=== PATIENT | female | born 1955 | race Caucasian/White ===

== ENCOUNTER → 2019-05-28 | Outpatient (CLI) | payer SELFPAY ==
--- NOTE | 2019-05-28 15:26 | RADIOLOGY REPORT (SQ) ---
EXAM DESCRIPTION: FOOT LEFT COMPLETE COMPLETED DATE/TIME: 05/28/2019 12:27 pm REASON FOR STUDY: LEFT FOOT PAIN, REDNESS AND SWELLING COMPARISON: None. NUMBER OF VIEWS: Three views. TECHNIQUE: AP, lateral and oblique radiographic images acquired of the left foot. LIMITATIONS: None. FINDINGS: MINERALIZATION: Normal. BONES: No acute fracture or dislocation. No worrisome bone lesions. JOINTS: No effusions. SOFT TISSUES: No soft tissue swelling. No foreign body. OTHER: No other significant finding. IMPRESSION: NEGATIVE STUDY OF THE LEFT FOOT. NO RADIOGRAPHIC EVIDENCE OF ACUTE INJURY. TECHNICAL DOCUMENTATION: JOB ID: [id number] [employer]- All Rights Reserved Reading location - IP/workstation name: [email or web address]
== END ==
LOC: RAD 11:51
PROVIDERS: ATTEND Nurse Practitioner Family
DX: M79.672 Pain in left foot (principal)

== ENCOUNTER → 2019-07-16 | Outpatient (CLI) | payer OTHER ==
--- NOTE | 2019-07-16 13:03 | WOMENS IMAGING REPORT ---
EXAM DESCRIPTION: RETROPERITONEAL U/S COMPLETED DATE/TIME: 07/16/2019 12:07 pm REASON FOR STUDY: N39.0 URINARY TRACT INFECTION, SITE NOT SPECIFIED N39.0 URINARY TRACT INFECTION, SITE NOT SPECIFIED COMPARISON: None. TECHNIQUE: Dynamic and static grayscale images acquired of the kidneys and bladder and recorded on P ACS. Additional selected color Doppler and spectral images recorded. LIMITATIONS: None. FINDINGS: RIGHT KIDNEY: Right kidney 11.2 cm in length Normal echogenicity. No solid or suspici ous masses. No hydronephrosis. No calcifications. LEFT KIDNEY: Left kidney 10.5 cm in length. Normal echogenicity. No solid or suspicious masses. No hydronephrosis. No calcifications. BLADDER: No masses. OTHER FINDINGS: Echogenic liver, shadowing stones in the gallbladder IMPRESSION: NORMAL RENAL AND BLADDER ULTRASOUND. TECHNICAL DOCUMENTATION: JOB ID: [id number]- All Rights Reserved Reading location - IP/workstation name: [email or web address]
== END ==
LOC: WI 11:30
PROVIDERS: ATTEND Urology
DX: N39.0 Urinary tract infection, site not specified (principal)
CPT/HCPCS: 76770

== ENCOUNTER → 2019-09-03 | Outpatient (CLI) | payer OTHER ==
--- NOTE | 2019-09-03 15:08 | WOMENS IMAGING REPORT ---
EXAM DESCRIPTION: TRANSVAGINAL ULTRASOUND COMPLETED DATE/TIME: 09/03/2019 2:27 pm REASON FOR STUDY: N93.9 ABNORMAL UTERINE AND VAGINAL BLEEDING, UNSPECIFIED N93.9 ABNORMAL UTERINE A ND VAGINAL BLEEDING, UNSPECIFIED COMPARISON: None. TECHNIQUE: Dynamic and static grayscale images acquired of the pelvis via transvaginal approach and recorded on PACS. Additional selected color Doppler and spectral images recorded. LIMITATIONS: None. FINDINGS: Prior hysterectomy and BSO. No pelvic mass or fluid collection. IMPRESSION: No pelvic mass or fluid collection. TECHNICAL DOCUMENTATION: JOB ID: [id number]- All Rights Reserved Rev-03/03 Reading location - IP/workstation name: [email or web address]
== END ==
LOC: RAD 14:05
PROVIDERS: ATTEND Nurse Practitioner Primary Care
DX: N93.9 Abnormal uterine and vaginal bleeding, unspecified (principal)
CPT/HCPCS: 76830

== ENCOUNTER 2019-10-08 16:56 | Observation (INO) | payer OTHER ==
--- NOTE | 2019-10-08 17:53 | ER Document Report ---
ED Medical Screen (RME) - General Chief Complaint: Vaginal Bleeding Stated Complaint: ABDOMINAL PAIN, VAGINAL BLEEDING Time Seen by Provider: 10/08/19 17:37 Primary Care Provider: ESHA PAIGE FNP-C [Primary Care Provider] - Follow up as needed Notes: 64-year-old female with history of subacute vaginal bleeding and hypertension presents to the emergency department for chief complaint of vaginal bleeding. Patient states that she has been fully worked up by an urologist and her no abnormalities seen. She was also seen at [facility] and had a transvaginal ultrasound on 09/03/2019 and had a normal ultrasound. Patient states that the bleeding has been present since May and ranges from spotting to very light "last day of my period" bleeding. Patient was instructed to go through the emergency department for further evaluation. Patient does have intermittent generalized abdominal pain. Exam: Well-appearing no acute distress, lungs are clear to auscultation all hernandez, abdominal exam deferred in triage I have greeted and performed a rapid initial assessment of this patient. A comprehensive ED assessment and evaluation of the patient, analysis of test results and completion of medical decision making process will be conducted by an additional ED providers. TRAVEL OUTSIDE OF THE [place] IN LAST 30 DAYS: No - Related Data Allergies/Adverse Reactions: No Known Allergies Allergy (Verified 10/08/19 17:37) Physical Exam - Vital signs Vitals: Temp Pulse Resp BP Pulse Ox 98.0 F 67 18 117/56 L 97 10/08/19 17:04 10/08/19 17:04 10/08/19 17:04 10/08/19 17:04 10/08/19 17:04 Course - Vital Signs Vital signs: Temp Pulse Resp BP Pulse Ox 98.0 F 67 18 117/56 L 97 10/08/19 17:04 10/08/19 17:04 10/08/19 17:04 10/08/19 17:04 10/08/19 17:04 Doctor's Discharge - Discharge Referrals: ESHA PAIGE FNP-C [Primary Care Provider] - Follow up as needed
[2019-10-08 18:24] LABS: APPEARANCE,URINE SLIGHTLY-CLOUDY; BILIRUBIN,URINE NEGATIVE (NEGATIVE); COLOR,URINE YELLOW; GLUCOSE, URINE NEGATIVE (NEGATIVE); KETONES,URINE NEGATIVE (NEGATIVE); LEUKOCYTE ESTERASE,URINE LARGE (NEGATIVE); NITRITE,URINE NEGATIVE (NEGATIVE); PROTEIN,URINE NEGATIVE (NEGATIVE); URINE SPECIFIC GRAVITY 1.017; UROBILINOGEN,URINE NEGATIVE mg/dL (<2.0)
[2019-10-08 19:45] LABS: ABSOLUTE BASOPHILS # (AUTO) 0.1 10^3/uL (0.0-0.2); ABSOLUTE EOSINOPHILS # (AUTO) 0.4 10^3/uL (0.0-0.6); ABSOLUTE LYMPHOCYTES (AUTO) 3.2 10^3/uL (0.5-4.7); ABSOLUTE NEUT (AUTO) 6.6 10^3/uL (1.7-8.2); BASOPHILS % (AUTO) 1.3 % (0-2); EOSINOPHILS % (AUTO) 3.9 % (0-6); HEMOGLOBIN 11.6 g/dL (12.0-15.5); LYMPHOCYTES % (AUTO) 28.2 % (13-45); MEAN CORPUSCULAR HEMOGLOBIN 29.5 pg (27.0-33.4); MEAN CORPUSCULAR HGB CONC 33.1 g/dL (32.0-36.0); MEAN CORPUSCULAR VOLUME 89 fl (80-97); MONOCYTES % (AUTO) 9.1 % (3-13); PLATELET COUNT 481 10^3/uL (150-450); RED BLOOD COUNT 3.93 10^6/uL (3.72-5.28); RED CELL DISTRIBUTION WIDTH 15.2 % (11.5-14.0); SEGMENTED NEUTROPHILS % (AUTO) 57.5 % (42-78); TOTAL CELLS COUNTED % (AUTO) 100 %; WHITE BLOOD COUNT 11.4 10^3/uL (4.0-10.5)
[2019-10-08 20:07] LABS: ALBUMIN 3.8 g/dL (3.5-5.0); ALKALINE PHOSPHATASE 133 U/L (38-126); ANION GAP 9 (5-19); ASPARTATE AMINO TRANSFERASE 35 U/L (14-36); BILIRUBIN,DIRECT 0.1 mg/dL (0.0-0.4); BILIRUBIN,TOTAL 0.3 mg/dL (0.2-1.3); BLOOD UREA NITROGEN 12 mg/dL (7-20); CALCIUM 9.2 mg/dL (8.4-10.2); CARBON DIOXIDE 28 mmol/L (22-30); CHLORIDE 100 mmol/L (98-107); GLUCOSE 107 mg/dL (75-110); POTASSIUM 4.5 mmol/L (3.6-5.0); TOTAL PROTEIN 6.6 g/dL (6.3-8.2)
--- NOTE | 2019-10-08 20:38 | ER Document Report ---
ED General - General Chief Complaint: Vaginal Bleeding Stated Complaint: ABDOMINAL PAIN, VAGINAL BLEEDING Time Seen by Provider: 10/08/19 17:37 Primary Care Provider: ESHA PAIGE FNP-C [NO LOCAL MD] - Follow up as needed Notes: 64-year-old female with history of complete hysterectomy presents for vaginal bl eeding that is been ongoing since May. Associated pelvic cramping similar to a menstrual cramp. Patient also states she has some dysuria and odor for 2 days. Patient states she was seen by urologist and had "a complete work-up" patient included a cystoscope and ultrasound of her kidneys/bladder which were all normal. Patient then was sent for a transvaginal ultrasound on September 04 which was also unremarkable. Patient was sent to ER for further work-up today. Patient is followed by her PCP at [facility]. Patient denies any abdominal pain, nausea/vomiting/diarrhea/constipation, chest pain, dyspnea. TRAVEL OUTSIDE OF THE [place] IN LAST 30 DAYS: No - Related Data Allergies/Adverse Reactions: No Known Allergies Allergy (Verified 10/08/19 17:37) Past Medical History - Social History Smoking Status: Former Smoker Family History: None Patient has suicidal ideation: No Patient has homicidal ideation: No Review of Systems - Review of Systems Notes: Constitutional: Negative for fever. HENT: Negative for sore throat. Eyes: Negative for visual changes. Cardiovascular: Negative for chest pain. Respiratory: Negative for shortness of breath. Gastrointestinal: Negative for abdominal pain, vomiting or diarrhea. Genitourinary: Positive for dysuria, urinary odor, vaginal bleeding.. Musculoskeletal: Negative for back pain. Skin: Negative for rash. Neurological: Negative for headaches, weakness or numbness. 10 point ROS negative except as marked above and in HPI. Physical Exam - Vital signs Vitals: Temp Pulse Resp BP Pulse Ox 98.0 F 67 18 117/56 L 97 10/08/19 17:04 10/08/19 17:04 10/08/19 17:04 10/08/19 17:04 10/08/19 17:04 - Notes Notes: GENERAL: Well-appearing, well-nourished and in no acute distress. HEAD: Atraumatic, normocephalic. EYES: Extraocular movements intact, sclera anicteric, conjunctiva are normal. NECK: Normal range of motion, supple without lymphadenopathy or JVD. LUNGS: Breath sounds clear to auscultation bilaterally and equal. No wheezes rales or rhonchi. HEART: Regular rate and rhythm without murmurs, rubs or gallops. ABDOMEN: Soft, nontender. No guarding, no rebound. No masses appreciated. PELVIC: No cervix seen. Vagina appears irritated with mild bleeding. Rectal: External hemrrhoids seen without inflammation. Hemoccult is negative. No gross blood seen on exam. EXTREMITIES: Normal range of motion, no pitting or edema. No clubbing or cyanosis. NEUROLOGICAL: Cranial nerves II through XII grossly intact. Normal speech, normal gait. PSYCH: Normal mood, normal affect. SKIN: Warm, Dry, normal turgor, no rashes or lesions noted. Course - Re-evaluation Re-evalutation: 10/08/19 Well-appearing, nontoxic female who presents for vaginal bleeding since May. Patient has been seen by urologist "had a normal work-up." Patient was also sent for transvaginal ultrasound by her PCP in August which was normal. Patient has a history of a complete hysterectomy. Patient also reports associated lower pelvic cramping similar to a menstrual cramp. Patient also reports 2-day history of dysuria and urinary odor. Patient's UA is positive for a UTI. 10/08/19 20:38 CBC shows mild anemia with hemoglobin of 11.6 and mild leukocytosis of 11.4. CMP is within normal limits except for mildly elevated alk phos at 133 and sodium of 136.7. 10/08/19 20:40 Review of previous records shows of retroperitoneal ultrasound which was done on 07/16/2019 which showed normal kidneys and bladder. Transvaginal ultrasound completed on 09/03/2019 shows prior hysterectomy and BSO with no pelvic mass or fluid collection. 10/08/19 21:44 CT abdomen/pelvis shows findings suggesting peridiverticular abscess however pt has no abdominal tenderness on exam, no significantly elevated leukocytosis (WBC 11.4), and is afebrile. Discussed CT and pt with attending, Dr. Brown, who recommended pelvic exam and fecal hemoccult and sending pt home with vaginal estrogen cream. 10/08/19 22:[address] Duvall, general surgeon, who states he will come down to see pt. 10/08/19 22:35 Pelvic exam completed - vaginal irritation with mild bleeding seen consistent with atrophic vaginitis. No cervix seen. Rectal exam shows external hemorrhoids without inflammation. Fecal hemoccult is negative. 10/08/19 23:[address] Duvall at bedside. Dr. Duvall reviewed CT and states that fluid collection is most likely by the bladder and most likely secondary to bladder sling. Dr. Duvall recommends patient be seen by her urologist again that patient take CD of CT scan and CT report with her. Ask RN for CD and will call to have a CD burned with CT scan. Dr. Duvall states most likely that there is not a fistula between the bowel and bladder due to no air being in the bladder. This was all discussed with the patient at bedside. Patient to be given estrogen cream for vaginal irritation and close follow-up with urologist and her PCP. Patient voices understanding and agrees with plan of care. Strict return precautions given. - Vital Signs Vital signs: Temp Pulse Resp BP Pulse Ox 98.2 F 75 15 144/74 H 99 10/08/19 22:06 10/08/19 22:06 10/08/19 22:06 10/08/19 22:06 10/08/19 22:06 - Laboratory Result Diagrams: 10/08/19 19:16 10/08/19 19:16 Laboratory results interpreted by me: 10/08/19 10/08/19 10/08/19 17:55 19:16 19:16 WBC 11.4 H Hgb 11.6 L Hct 35.0 L RDW 15.2 H Plt Count 481 H Sodium 136.7 L Alkaline Phosphatase 133 H Urine Blood MODERATE H Ur Leukocyte Esterase LARGE H Urine Ascorbic Acid 40 H Discharge - Discharge Clinical Impression: Acute UTI, Atrophic vaginitis, Abscess Condition: Stable Disposition: ADMITTED INPATIENT Admitting Provider: Dr. Duvall Unit Admitted: Surgical Floor Instructions: Cephalexin ([facility]) Additional Instructions: Please call your urologist to make a follow-up appointment in 3 to [address] the [address] report and the CD containing the CT scan that was done today with you to the appointment. You were seen by Dr. Duvall the general surgeon on-call who reviewed your CT and states that the fluid collection is most likely from the bladder most likely secondary to bladder sling. Please take antibiotics as prescribed. Please use topical estradiol as prescribed. Please follow-up with your primary care doctor in 2 to 3 days. Return immediately to ER if you start having any worsening symptoms, including abdominal pain, fever, vomiting, diarrhea, constipation, not being able to pass gas, blood in stool, or any other symptoms that are concerning to you. Prescriptions: Estradiol [Estrace] 42.5 gm VG BID #1 tube Referrals: ESHA PAIGE FNP-C [NO LOCAL MD] - Follow up in 3-5 days
--- NOTE | 2019-10-08 21:19 | RADIOLOGY REPORT (SQ) ---
EXAM DESCRIPTION: CT ABDOMEN PELVIS WITH IV CONTRAST COMPLETED DATE/TME: 10/08/2019 17:49 CLINICAL HISTORY: 64 years Female abdominal pain COMPARISON: None. TECHNIQUE: Contiguous axial images obtained through the abdomen and pelvis following IV contrast. Reformatted images obtained. This exam was performed according to our department optimization program which includes automated exposure control, adjustment of the mA and/or kv according to patient size and/or use of iterative reconstruction technique. FINDINGS: Liver is enlarged measuring 19.9 cm. The spleen and pancreas appear unremarkable. Lobular adrenal gland on the left. The kidneys appear unremarkable. No hydronephrosis. The gallbladder is present with gallstones noted. No aneurysmal dilatation of the aorta. No bowel obstruction. The appendix is unremarkable. Diverticulosis with inflammation and wall thickening in the sigmoid colon with an adjacent gas and fluid collection suggesting a peridiverticular abscess. This measures 3 x 2.7 cm and is inseparable from the dome of the bladder which is thickened. Inflammatory changes in the pelvis without significant free fluid. IMPRESSION: Findings suggesting peridiverticular abscess arising from the inferior aspect of the sigmoid colon which is inseparable from the dome of the bladder resulting in bladder wall thickening and inflammation abscess from other etiology thought less likely but not entirely excluded Inflammatory changes in the pelvis without free fluid Enlarged liver
[2019-10-09] MEDS ORDERED: ONDANSETRON HCL INJ/PF 4 MG/2 ML SDV IV PRN (00:21)
[2019-10-09] MEDS ORDERED: NORMAL SALINE 1000 ML 1,000 ML IV PRN (00:21)
--- NOTE | 2019-10-09 00:21 | PDOC CONSULTATION ---
Consultation Consult Date: 10/08/19 Provider Consulted: CHIHCI MEDEROS Consult reason:: Pelvic fluid collection History of Present Illness Admission Date/PCP: FADIA CISNEROS MD Patient complains of: Pelvic fluid collection History of Present Illness: MCKINLEY BOND is a 64 year old female Patient is an obese 64-year-old female, status post transabdominal hysterectomy years ago, status post vaginal sling in 2004, who recently has developed multiple urinary tract infections and is being evaluated by a local urologist with cystoscopy, ultrasound of the kidneys, ultrasound of the bladder, which were all normal. Patient denies any previous history of rectal bleeding, acute diverticulitis, and severe lower abdominal pain. His colonoscopy was about 10 years ago and it was negative. In addition, patient presents with spontaneous vaginal bleeding which has been thought to be secondary to vaginal thelium atrophy. During the work-up in the emergency room done today, a CT scan abdomen pelvis was done revealing a small fluid collection, most likely a deshawn-diverticular abscess originating from the sigmoid colon and matted against the dome of the bladder. No air is identified within the bladder. Past Medical History Past Medical History: Hypertension, gout, essential tremor, arthritis Cardiac Medical History: Reports: Hypertension EENT Medical History: Reports: None Neurological Medical History: Reports: Other - Central tremor Endocrine Medical History: Reports: Other - Gout GI Medical History: Reports: Other - Gout Musculoskeltal Medical History: Reports: Arthritis Past Surgical History Past Surgical History: transabdominal hysterectomy, bladder sling Social History Smoking Status: Former Smoker Family History Parental Family History Reviewed: Yes - Emphysema and dementia Children Family History Reviewed: No Sibling(s) Family History Reviewed.: No Medication/Allergy Home Medications: Estradiol [Estrace] 42.5 gm VG BID #1 tube 10/09/19 Allergies/Adverse Reactions: No Known Allergies Allergy (Verified 10/08/19 17:37) Physical Exam Vital Signs: Temp Pulse Resp BP Pulse Ox 98.2 F 75 15 144/74 H 99 10/08/19 22:06 10/08/19 22:06 10/08/19 22:06 10/08/19 22:06 10/08/19 22:06 Intake & Output 10/07/19 10/08/19 10/09/19 06:59 06:59 06:59 Weight 94 kg General appearance: PRESENT: no acute distress, obese, well-developed, well- nourished Head exam: PRESENT: atraumatic Eye exam: PRESENT: EOMI Mouth exam: PRESENT: neck supple Neck exam: PRESENT: full ROM Respiratory exam: PRESENT: clear to auscultation ilya Cardiovascular exam: PRESENT: RRR GI/Abdominal exam: PRESENT: normal bowel sounds, soft, other - Not distended, not tender Rectal exam: PRESENT: deferred Extremities exam: PRESENT: full ROM Musculoskeletal exam: PRESENT: full ROM Neurological exam: PRESENT: alert, awake, oriented to time, oriented to situation Psychiatric exam: PRESENT: appropriate affect Skin exam: PRESENT: warm Results Laboratory Results: 10/08/19 19:16 10/08/19 19:16 10/08/19 10/08/19 10/08/19 17:55 19:16 19:16 WBC 11.4 H RBC 3.93 Hgb 11.6 L Hct 35.0 L MCV 89 MCH 29.5 MCHC 33.1 RDW 15.2 H Plt Count 481 H Seg Neutrophils % 57.5 Sodium 136.7 L Potassium 4.5 Chloride 100 Carbon Dioxide 28 Anion Gap 9 BUN 12 Creatinine 0.82 Est GFR ( Amer) > 60 Glucose 107 Calcium 9.2 Total Bilirubin 0.3 AST 35 Alkaline Phosphatase 133 H Total Protein 6.6 Albumin 3.8 Urine Color YELLOW Urine Appearance SLIGHTLY-CLOUDY Urine pH 5.0 Ur Specific [place] 1.017 Urine Protein NEGATIVE Urine Glucose (UA) NEGATIVE Urine Ketones NEGATIVE Urine Blood MODERATE H Urine Nitrite NEGATIVE Ur Leukocyte Esterase LARGE H Urine WBC (Auto) 164 Urine RBC (Auto) 31 Impressions: Abdomen/Pelvis CT 10/08/19 17:49 IMPRESSION: Findings suggesting peridiverticular abscess arising from the inferior aspect of the sigmoid colon which is inseparable from the dome of the bladder resulting in bladder wall thickening and inflammation abscess from other etiology thought less likely but not entirely excluded Inflammatory changes in the pelvis without free fluid Enlarged liver Assessment & Plan - Plan Summary Plan Summary: Assessment: CT scan abdomen pelvis with perisigmoid fluid collection as per acute sigmoid diverticulitis complicated by abscess This fluid collection is also matted against the bladder History of vaginal sling years ago No history of lower abdominal pain or acute diverticulitis Negative urological work-up done recently (cystoscopy, kidney ultrasound, bladder ultrasound) Plan: Admit the patient N.p.o. Continue home medications Start ceftriaxone and clindamycin IV Schedule patient for interventional radiology drainage of the sigmoid fluid collection in a.m.
[2019-10-09] MEDS ORDERED: CLINDAMYCIN 600 MG/D5W RTU 600 MG/50 ML RTUPB IV ONE (01:00)
[2019-10-09] MEDS ORDERED: CEFTRIAXONE 2 GM/D5W RTU 2 GM/50 ML RTUPB IV ONE (01:00)
[2019-10-09] MEDS ORDERED: FAMOTIDINE INJ/PF 20 MG/2 ML SDV IV ONE (01:00)
[2019-10-09 01:18] LABS: INTERNATIONAL RATION (INR) 0.95; PROTHROMBIN TIME 12.7 SEC (11.4-15.4)
[2019-10-09 01:19] LABS: PARTIAL THROMBOPLASTIN TIME 39.5 SEC (23.5-35.8)
[2019-10-09] MEDS ORDERED: MELATONIN 5 MG TABLET PO PRN (03:41)
[2019-10-09] MEDS ORDERED: ASCORBATE SODIUM PO SCH (08:00)
[2019-10-09] MEDS ORDERED: MULTIVITAMIN TABLET PO SCH (08:00)
[2019-10-09] MEDS ORDERED: [UNRECOGNIZED DRUG - OTHER] PO SCH (08:00)
[2019-10-09] MEDS ORDERED: ASCORBIC ACID PO SCH (08:00)
[2019-10-09] MEDS ORDERED: PANTOPRAZOLE SODIUM 20 MG TABLET.DR PO SCH (08:00)
[2019-10-09] MEDS ORDERED: LYSINE 500 MG PO SCH (08:00)
[2019-10-09] MEDS ORDERED: PROPRANOLOL HCL 20 MG TABLET PO SCH (10:00)
[2019-10-09] MEDS ORDERED: CLINDAMYCIN 600 MG/D5W RTU 600 MG/50 ML RTUPB IV SCH (10:00)
[2019-10-09] MEDS ORDERED: BUPROPION HCL PO SCH (10:00)
[2019-10-09] MEDS ORDERED: (PENDING PHARMACY ID) (Diclofenac Sodium [Diclofenac Sodium] 75 MG) PO SCH (10:00)
[2019-10-09] MEDS ORDERED: (PENDING PHARMACY ID) (Propranolol Hcl [Propranolol Hcl Er] 60 MG) PO SCH (10:00)
[2019-10-09] MEDS ORDERED: LOSARTAN POTASSIUM 50 MG TABLET PO SCH (10:00)
[2019-10-09] MEDS ORDERED: FAMOTIDINE INJ/PF 20 MG/2 ML SDV IV SCH (10:00)
--- NOTE | 2019-10-09 13:22 | PDOC DISCHARGE SUMMARY ---
General - Admit/Disc Date/PCP Admission Date/Primary Care Provider: 10/09/19 00:29 FADIA CISNEROS MD Discharge Date: 10/09/19 - Discharge Diagnosis Final Diagnosis: Abdominal sigmoid diverticular abscess History of recurrent UTIs S/p urinary bladder sling this meant years ago - Assessment Summary: The patient is a 64-year-old female with history of hypertension, gout, arthri tis, who was seen emergency room on October 08 sent by her primary care physician because of a history of the vaginal bleeding. During evaluation by the PA of the emergency room, the patient underwent a CT scan abdomen pelvis with revealed a 2 cm fluid collection on the side of the sigmoid colon as per sigmoid diverticulitis abscess. The fluid collection was also matted against the bladder. In addition, the patient gives a history of recurrent UTIs since February 2019. Because of this, she was evaluated by an outside urologist and she underwent multiple tests including cystoscopy, ultrasound of the urinary bladder, and ultrasound of the kidneys all with negative results. According to the patient the urologist was looking for a bladder fistula, but he was not able to identify it. The patient also has a history of previous urinary bladder sling placement about 10 years ago by a different urologist in [place]. The patient was then admitted for possible intervention radiology drainage of the fluid collection. However, the lesion was considered too small by the radiologist for drain placement or aspiration. Conversation with the radiologist longitudinal float operator, it was his impression that the pa flora had a sigmoid diverticulitis abscess a very small size with very filled with very little fluid and containing mostly gas. The recommendation of the radiologist was that because the cyst small size, this could have resolved on its own with conservative oral antibiotic management. Therefore, it was recommended to the patient to be discharged to home, to be on oral antibiotics for 15 days (Augmentin 875 mg p.o. twice daily and clindamycin 300 mg p.o. 3 times daily), and to follow-up with the surgery office in 3 weeks for further evaluation. At time of the surgery office clinic, a decision will be made whether additional imaging would be necessary or if the patient should be simply follow-up as needed without additional intervention. The patient was discharged on October 09, 2019 on a fiber diet, bath or shower, activity as tolerated, and her home medications, as well as Augmentin and clindamycin by mouth for 2 weeks. - Additional Information Resuscitation Status: Full Code Discharge Diet: Other (Comments) - Low fiber diet Discharge Activity: Activity As Tolerated Referrals: ESHA PAIGE FNP-C [NO LOCAL MD] - Follow up in 3-5 days (Follow-up 3 weeks after discharge) Prescriptions: Amox Tr/Potassium Clavulanate [Augmentin 875-125 mg Tablet] 1 tab PO BID #30 tablet Clindamycin HCl [Cleocin 300 mg Capsule] 300 mg PO Q6 #60 capsule Home Medications: Amox Tr/Potassium Clavulanate [Augmentin 875-125 mg Tablet] 1 tab PO BID #30 tablet 10/09/19 Ascorbic Acid/Ascorbate Sodium [Vit C-Lucie Hips 500 mg Chew Tb] 1 tab PO QAM 10/09/19 Bupropion HCl [Bupropion Xl] 150 mg PO DAILY 10/09/19 Clindamycin HCl [Cleocin 300 mg Capsule] 300 mg PO Q6 #60 capsule 10/09/19 Diclofenac Sodium 75 mg PO BIDP PRN 10/09/19 Duloxetine HCl 60 mg PO QHS 10/09/19 Lansoprazole 15 mg PO QAM 10/09/19 Losartan Potassium 50 mg PO DAILY 10/09/19 Lysine [l-Lysine] 500 mg PO QAM 10/09/19 Melatonin 5 mg PO HSP PRN 10/09/19 Multivit-Min/Iron/Folic/Lutein [Multivitamin Women 50 Plus Tab] 1 tab PO QAM 10/09/19 Primidone [Mysoline 50 mg Tablet] 100 mg PO QHS tablet 10/09/19 Propranolol HCl 60 mg PO BID 10/09/19 History of Present Illiness History of Present Illness: MCKINLEY BOND is a 64 year old female Patient is an obese 64-year-old female, status post transabdominal hysterectomy years ago, status post vaginal sling in 2004, who recently has developed multiple urinary tract infections and is being evaluated by a local urologist with cystoscopy, ultrasound of the kidneys, ultrasound of the bladder, which were all normal. Patient denies any previous history of rectal bleeding, acute diverticulitis, and severe lower abdominal pain. His colonoscopy was about 10 years ago and it was negative. In addition, patient presents with spontaneous vaginal bleeding which has been thought to be secondary to vaginal thelium atrophy. During the work-up in the emergency room done today, a CT scan abdomen pelvis was done revealing a small fluid collection, most likely a deshawn-diverticular abscess originating from the sigmoid colon and matted against the dome of the bladder. No air is identified within the bladder. Physical Exam Vital Signs: Temp Pulse Resp BP Pulse Ox 98.0 F 80 19 134/58 H 91 L 10/09/19 07:28 10/09/19 07:28 10/09/19 07:28 10/09/19 07:28 10/09/19 07:28 Intake & Output 10/08/19 10/09/19 10/10/19 06:59 06:59 06:59 Intake Total 100 Balance 100 Weight 89.3 kg Results Laboratory Results: WBC 11.4 10^3/uL (4.0-10.5) H 10/08/19 19:16 RBC 3.93 10^6/uL (3.72-5.28) 10/08/19 19:16 Hgb 11.6 g/dL (12.0-15.5) L 10/08/19 19:16 Hct 35.0 % (36.0-47.0) L 10/08/19 19:16 MCV 89 fl (80-97) 10/08/19 19:16 MCH 29.5 pg (27.0-33.4) 10/08/19 19:16 MCHC 33.1 g/dL (32.0-36.0) 10/08/19 19:16 RDW 15.2 % (11.5-14.0) H 10/08/19 19:16 Plt Count 481 10^3/uL (150-450) H 10/08/19 19:16 Lymph % (Auto) 28.2 % (13-45) 10/08/19 19:16 [place] % (Auto) 9.1 % (3-13) 10/08/19 19:16 Eos % (Auto) 3.9 % (0-6) 10/08/19 19:16 Baso % (Auto) 1.3 % (0-2) 10/08/19 19:16 Absolute Neuts (auto) 6.6 10^3/uL (1.7-8.2) 10/08/19 19:16 Absolute Lymphs (auto) 3.2 10^3/uL (0.5-4.7) 10/08/19 19:16 Absolute Monos (auto) 1.0 10^3/uL (0.1-1.4) 10/08/19 19:16 Absolute Eos (auto) 0.4 10^3/uL (0.0-0.6) 10/08/19 19:16 Absolute Basos (auto) 0.1 10^3/uL (0.0-0.2) 10/08/19 19:16 Seg Neutrophils % 57.5 % (42-78) 10/08/19 19:16 PT 12.7 SEC (11.4-15.4) 10/09/19 01:01 INR 0.95 10/09/19 01:01 APTT 39.5 SEC (23.5-35.8) H 10/09/19 01:01 Sodium 136.7 mmol/L (137-145) L 10/08/19 19:16 Potassium 4.5 mmol/L (3.6-5.0) 10/08/19 19:16 Chloride 100 mmol/L (98-107) 10/08/19 19:16 Carbon Dioxide 28 mmol/L (22-30) 10/08/19 19:16 Anion Gap 9 (5-19) 10/08/19 19:16 BUN 12 mg/dL (7-20) 10/08/19 19:16 Creatinine 0.82 mg/dL (0.52-1.25) 10/08/19 19:16 Est GFR ( Amer) > 60 (>60) 10/08/19 19:16 Est GFR (MDRD) Non-Af > 60 (>60) 10/08/19 19:16 Glucose 107 mg/dL (75-110) 10/08/19 19:16 Calcium 9.2 mg/dL (8.4-10.2) 10/08/19 19:16 Total Bilirubin 0.3 mg/dL (0.2-1.3) 10/08/19 19:16 Direct Bilirubin 0.1 mg/dL (0.0-0.4) 10/08/19 19:16 Neonat Total Bilirubin Not Reportable 10/08/19 19:16 Neonat Direct Bilirubin Not Reportable 10/08/19 19:16 Neonat Indirect Bili Not Reportable 10/08/19 19:16 AST 35 U/L (14-36) 10/08/19 19:16 ALT 44 U/L (<35) 10/08/19 19:16 Alkaline Phosphatase 133 U/L (38-126) H 10/08/19 19:16 Total Protein 6.6 g/dL (6.3-8.2) 10/08/19 19:16 Albumin 3.8 g/dL (3.5-5.0) 10/08/19 19:16 Urine Color YELLOW 10/08/19 17:55 Urine Appearance SLIGHTLY-CLOUDY 10/08/19 17:55 Urine pH 5.0 (5.0-9.0) 10/08/19 17:55 Ur Specific [place] 1.017 10/08/19 17:55 Urine Protein NEGATIVE mg/dL (NEGATIVE) 10/08/19 17:55 Urine Glucose (UA) NEGATIVE mg/dL (NEGATIVE) 10/08/19 17:55 Urine Ketones NEGATIVE mg/dL (NEGATIVE) 10/08/19 17:55 Urine Blood MODERATE (NEGATIVE) H 10/08/19 17:55 Urine Nitrite NEGATIVE (NEGATIVE) 10/08/19 17:55 Urine Bilirubin NEGATIVE (NEGATIVE) 10/08/19 17:55 Urine Urobilinogen NEGATIVE mg/dL (<2.0) 10/08/19 17:55 Ur Leukocyte Esterase LARGE (NEGATIVE) H 10/08/19 17:55 Urine WBC (Auto) 164 /HPF 10/08/19 17:55 Urine RBC (Auto) 31 /HPF 10/08/19 17:55 Urine Bacteria (Auto) 3+ /HPF 10/08/19 17:55 Squamous Epi Cells Auto <1 /HPF 10/08/19 17:55 Urine Mucus (Auto) RARE /LPF 10/08/19 17:55 Urine Ascorbic Acid 40 (NEGATIVE) H 10/08/19 17:55 POC Stool Occult Blood NEGATIVE (NEGATIVE) 10/08/19 22:31 Impressions: Abdomen/Pelvis CT 10/08/19 17:49 IMPRESSION: Findings suggesting peridiverticular abscess arising from the inferior aspect of the sigmoid colon which is inseparable from the dome of the bladder resulting in bladder wall thickening and inflammation abscess from other etiology thought less likely but not entirely excluded Inflammatory changes in the pelvis without free fluid Enlarged liver
[2019-10-09 14:31] VITALS: BP 124/54
--- NOTE | 2019-10-09 20:18 | EKG REPORT ---
SEVERITY:- NORMAL ECG - SINUS RHYTHM : Confirmed by: Nemo Lester MD 09-Oct-2019 20:17:04
[2019-10-09] MEDS ORDERED: PRIMIDONE 50 MG TABLET PO SCH (22:00)
[2019-10-09] MEDS ORDERED: BUPROPION HCL 75 MG TABLET PO SCH (22:00)
[2019-10-09] MEDS ORDERED: DULOXETINE HCL 30 MG CAPSULE.DR PO SCH (22:00)
[2019-10-09] MEDS ORDERED: CEFTRIAXONE 2 GM/D5W RTU 2 GM/50 ML RTUPB IV SCH (22:00)
== END 2019-10-09 16:50 | disposition home or self-care (01) ==
LOC: ER 16:56 → EH 10-09 00:29 → INTOOBSV 10-09 00:29 → 4N 10-09 02:07
PROVIDERS: ATTEND Surgery
DX: K57.20 Diverticulitis of large intestine with perforation and abscess without bleeding (principal); Z87.440 Personal history of urinary (tract) infections; Z79.899 Other long term (current) drug therapy; E66.9 Obesity, unspecified; N93.9 Abnormal uterine and vaginal bleeding, unspecified; M19.90 Unspecified osteoarthritis, unspecified site; N39.0 Urinary tract infection, site not specified; D64.9 Anemia, unspecified; D72.829 Elevated white blood cell count, unspecified; N95.2 Postmenopausal atrophic vaginitis; K64.4 Residual hemorrhoidal skin tags; I10 Essential (primary) hypertension; Z96.0 Presence of urogenital implants; Z90.710 Acquired absence of both cervix and uterus; Z87.891 Personal history of nicotine dependence
CPT/HCPCS: 99285; 36415 ×2; 87040; 85025; 85610; 85730; 80053; 81001; 74177; 93005; 93010; G0378 ×2; J3490 ×2; J7030; S0028; J0696

== ENCOUNTER → 2019-11-05 | Outpatient (CLI) | payer OTHER ==
--- NOTE | 2019-11-05 14:13 | RADIOLOGY REPORT (SQ) ---
EXAM DESCRIPTION: CT ABD/PELVIS WITH IV ORAL COMPLETED DATE/TIME: 11/05/2019 1:32 pm REASON FOR STUDY: K57.20 DVTRCLI OF LG INT W PERFORATION AND ABSCESS W/O BLEEDING K57.20 DVTRCLI OF LG INT W PERFORATION AND ABSCESS W/O BLEED COMPARISON: 10/08/2019 TECHNIQUE: CT scan of the abdomen and pelvis performed using helical scanning technique with dynamic intravenous contrast injection. No oral contrast. Images reviewed with lung, soft tissue, and bone windows. Reconstructed coronal and sagittal MPR images reviewed. Delayed images for evaluation of the urinary system also acquired. All images stored on PACS. All CT scanners at this facility use dose modulation, iterative reconstruction, and/or weight based d osing when appropriate to reduce radiation dose to as low as reasonably achievable (ALARA). [facility]: Dose Right [facility]: CareDose [facility]: Dose Right [facility]: Teradose 4D [facility]: 24/7 Card CONTRAST TYPE AND DOSE: contrast/concentration: Isovue 350.00 mg/ml; Total Contrast Delivered: 100.0 ml; Total Saline Delivered: 72.0 ml RENAL FUNCTION: GFR > 60. RADIATION DOSE: CT Rad equipment meets quality standard of care and radiation dose reduction techniq ues were employed. CTDIvol: 15.0 - 15.1 mGy. DLP: 1523 mGy-cm.. LIMITATIONS: None. FINDINGS: LOWER CHEST: No significant findings. No nodules or infiltrates. LIVER: Normal size. No masses. No dilated ducts. SPLEEN: Normal size. No focal lesions. PANCREAS: No masses. No significant calcifications. No adjacent inflammation or peripancreatic fluid collections. Pancreatic duct not dilated. GALLBLADDER: Small gallstones in the gallbladder. No inflammatory changes to suggest cholecystitis. ADRENAL GLANDS: No significant masses or asymmetry. RIGHT KIDNEY AND URETER: No solid masses. No significant calcifications. No hydronephrosis or hyd roureter. LEFT KIDNEY AND URETER: No solid masses. No significant calcifications. No hydronephrosis or hydr oureter. AORTA AND VESSELS: No aneurysm. No dissection. Renal arteries, SMA, celiac without stenosis. Calcifi c atherosclerosis. RETROPERITONEUM: No retroperitoneal adenopathy, hemorrhage or masses. BOWEL AND PERITONEAL CAVITY: Redemonstrated severe sigmoid diverticulosis with mild thickening of the sigmoid colon and adjacent inflammatory stranding, with no change in appearance of a small air and f luid collection measuring 3.0 cm at the inferior aspect of the mid sigmoid colon abutting the bladder dome (series 2, image 73). No free fluid or peritoneal masses. APPENDIX: Normal. PELVIS: No mass. Status post hysterectomy. No free fluid. ABDOMINAL WALL: No masses. No hernias. BONES: No significant or acute findings. OTHER: No other significant finding. IMPRESSION: 1. Redemonstrated severe sigmoid diverticulosis with mild thickening of the sigmoid colo n and adjacent inflammatory stranding, with no change in appearance of a small air and fluid collecti on measuring 3.0 cm at the inferior aspect of the mid sigmoid colon abutting the bladder dome (series 2, image 73). Findings remain consistent with a small abscess or abscess residua. There is no evid ence of perforation or bladder fistulation. 2. Chronic and incidental findings as detailed above. TECHNICAL DOCUMENTATION: JOB ID: [id number] Quality ID # [id number]: Final reports with documentation of one or more dose reduction techniques (e.g., Au tomated exposure control, adjustment of the mA and/or kV according to patient size, use of iterative reconstruction technique) 2010 [employer]- All Rights Reserved Reading location - IP/workstation name: [email or web address]
== END ==
LOC: RAD 13:04
PROVIDERS: ATTEND Surgery
DX: K57.20 Diverticulitis of large intestine with perforation and abscess without bleeding (principal)
CPT/HCPCS: 74177

== ENCOUNTER → 2019-12-10 | Outpatient (CLI) | payer OTHER ==
--- NOTE | 2019-12-10 16:45 | RADIOLOGY REPORT (SQ) ---
EXAM DESCRIPTION: CT ABD/PELVIS WITH IV ORAL COMPLETED DATE/TIME: 12/10/2019 3:56 pm REASON FOR STUDY: K63.0 ABSCESS OF INTESTINE K63.0 ABSCESS OF INTESTINE COMPARISON: 11/05/2019 TECHNIQUE: CT scan of the abdomen and pelvis performed using helical scanning technique with dynamic intravenous contrast injection. Oral contrast. Images reviewed with lung, soft tissue, and bone win dows. Reconstructed coronal and sagittal MPR images reviewed. Delayed images for evaluation of the ur inary system also acquired. All images stored on PACS. All CT scanners at this facility use dose modulation, iterative reconstruction, and/or weight based d osing when appropriate to reduce radiation dose to as low as reasonably achievable (ALARA). [facility]: Dose Right [facility]: CareDose [facility]: Dose Right [facility]: Teradose 4D [facility]: [employer] CONTRAST TYPE AND DOSE: contrast/concentration: Isovue 350.00 mg/ml; Total Contrast Delivered: 100.0 ml; Total Saline Delivered: 72.0 ml RENAL FUNCTION: Creatinine 0.9 RADIATION DOSE: CT Rad equipment meets quality standard of care and radiation dose reduction techniq ues were employed. CTDIvol: 16.6 - 16.6 mGy. DLP: 1666 mGy-cm.. LIMITATIONS: None. FINDINGS: LOWER CHEST: No significant findings. No nodules or infiltrates. LIVER: Normal size. No masses. No dilated ducts. SPLEEN: Normal size. No focal lesions. PANCREAS: No masses. No significant calcifications. No adjacent inflammation or peripancreatic fluid collections. Pancreatic duct not dilated. GALLBLADDER: A couple small gallstones are present. ADRENAL GLANDS: No significant masses or asymmetry. RIGHT KIDNEY AND URETER: No solid masses. No significant calcifications. No hydronephrosis or hyd roureter. LEFT KIDNEY AND URETER: No solid masses. No significant calcifications. No hydronephrosis or hydr oureter. AORTA AND VESSELS: No aneurysm. No dissection. Renal arteries, SMA, celiac without stenosis. RETROPERITONEUM: No retroperitoneal adenopathy, hemorrhage or masses. BOWEL AND PERITONEAL CAVITY: Sigmoid diverticulosis with some mild chronic thickening in a segment of the sigmoid colon. There is a persistent collection of air associated with the sigmoid colon adjace nt to the dome of the bladder on the left. The previously seen fluid collection in this area is no l onger evident. APPENDIX: Not identified. PELVIS: No mass. No free fluid. Normal bladder. ABDOMINAL WALL: No masses. No hernias. BONES: No significant or acute findings. OTHER: No other significant finding. IMPRESSION: 1. Sigmoid diverticulosis with mild persistent associated inflammatory changes but with overall appearance improved. There is a persistent small collection of air to the left of the midli ne as described. No residual abscess is seen. 2. Cholelithiasis. TECHNICAL DOCUMENTATION: JOB ID: [id number] Quality ID # 436: Final reports with documentation of one or more dose reduction techniques (e.g., Au tomated exposure control, adjustment of the mA and/or kV according to patient size, use of iterative reconstruction technique) 2010 [employer]- All Rights Reserved Reading location - IP/workstation name: [email or web address]
== END ==
LOC: RAD 14:53
PROVIDERS: ATTEND Surgery
DX: K63.0 Abscess of intestine (principal); K57.30 Diverticulosis of large intestine without perforation or abscess without bleeding; K80.20 Calculus of gallbladder without cholecystitis without obstruction
CPT/HCPCS: 74177; 82565

== ENCOUNTER 2019-12-27 08:17 | Inpatient (IN) | payer OTHER ==
--- NOTE | 2019-12-20 10:15 | RADIOLOGY REPORT (SQ) ---
EXAM DESCRIPTION: CHEST PA/LATERAL COMPLETED DATE/TIME: 12/20/2019 10:01 am REASON FOR STUDY: PRE-OP COMPARISON: CT abdomen pelvis 12/10/2019 EXAM PARAMETERS: NUMBER OF VIEWS: two views TECHNIQUE: Digital Frontal and Lateral radiographic views of the chest acquired. RADIATION DOSE: NA LIMITATIONS: none FINDINGS: LUNGS AND PLEURA: No opacities, masses or pneumothorax. No pleural effusion. MEDIASTINUM AND HILAR STRUCTURES: No masses or contour abnormalities. HEART AND VASCULAR STRUCTURES: Heart normal size. No evidence for failure. BONES: No acute findings. HARDWARE: None in the chest. OTHER: No other significant finding. IMPRESSION: NO SIGNIFICANT RADIOGRAPHIC FINDING IN THE CHEST. TECHNICAL DOCUMENTATION: JOB ID: [id number] 2010 [employer]- All Rights Reserved Reading location - IP/workstation name: [email or web address]
[2019-12-20 10:33] LABS: ABSOLUTE BASOPHILS # (AUTO) 0.1 10^3/uL (0.0-0.2); ABSOLUTE EOSINOPHILS # (AUTO) 0.4 10^3/uL (0.0-0.6); ABSOLUTE LYMPHOCYTES (AUTO) 3.4 10^3/uL (0.5-4.7); ABSOLUTE MONOCYTES (AUTO) 0.6 10^3/uL (0.1-1.4); ABSOLUTE NEUT (AUTO) 2.8 10^3/uL (1.7-8.2); BASOPHILS % (AUTO) 1.3 % (0-2); HEMOGLOBIN 12.8 g/dL (12.0-15.5); LYMPHOCYTES % (AUTO) 46.3 % (13-45); MEAN CORPUSCULAR HEMOGLOBIN 30.1 pg (27.0-33.4); MEAN CORPUSCULAR HGB CONC 33.8 g/dL (32.0-36.0); MEAN CORPUSCULAR VOLUME 89 fl (80-97); MONOCYTES % (AUTO) 8.7 % (3-13); PLATELET COUNT 428 10^3/uL (150-450); RED BLOOD COUNT 4.27 10^6/uL (3.72-5.28); SEGMENTED NEUTROPHILS % (AUTO) 37.7 % (42-78); TOTAL CELLS COUNTED % (AUTO) 100 %; WHITE BLOOD COUNT 7.3 10^3/uL (4.0-10.5)
[2019-12-20 10:55] LABS: CHLORIDE 97 mmol/L (98-107); POTASSIUM 4.4 mmol/L (3.6-5.0)
[2019-12-20 11:11] LABS: ANION GAP 11 (5-19); BLOOD UREA NITROGEN 17 mg/dL (7-20); CALCIUM 9.2 mg/dL (8.4-10.2); CARBON DIOXIDE 29 mmol/L (22-30); GLUCOSE 137 mg/dL (75-110)
--- NOTE | 2019-12-20 13:05 | EKG REPORT ---
SEVERITY:- NORMAL ECG - SINUS RHYTHM : Confirmed by: Junior Engel MD 20-Dec-2019 13:05:02
[~2019-12-27 08:17] MED LIST: CEFAZOLIN SODIUM 2 GM in DEXTROSE 5%-WATER 100 ML IV PRN; GLYCOPYRROLATE 1 MG/5 ML VIAL ONE; KETOROLAC TROMETHAMINE 60 MG/2 ML SDV ONE; LIDOCAINE 2% INJ-PF (20 MG/ML) 2 ML AMPUL ONE; METRONIDAZOLE 500 MG/NS RTU 500 MG/100 ML RTUPB IV PRN; NEOSTIGMINE METHYLSULFATE 10 MG/10 ML VIAL ONE; PHENYLEPHRINE HCL INJ/PF 10 MG/1 ML SDV ONE
[2019-12-27] MEDS ORDERED: METRONIDAZOLE 500 MG/NS RTU 500 MG/100 ML RTUPB IV ONE (08:49)
[2019-12-27] MEDS ORDERED: FENTANYL CITRATE INJ/PF 100 MCG/2 ML AMPUL ONE (09:55)
[2019-12-27] MEDS ORDERED: HYDROMORPHONE HCL INJ/PF 2 MG/ML AMPULE ONE ×2 (09:55→13:57)
[2019-12-27] MEDS ORDERED: MIDAZOLAM 2 MG/2 ML INJ ONE (09:56)
[2019-12-27] MEDS ORDERED: PROPOFOL INJ 200 MG/20 ML VIAL IV ONE ×4 (09:56→11:53)
[2019-12-27] MEDS ORDERED: ONDANSETRON HCL INJ/PF 4 MG/2 ML SDV ONE (10:06)
[2019-12-27] MEDS ORDERED: DEXAMETHASONE SOD PHOSPHATE INJ 4 MG/1 ML VIAL ONE (10:06)
[2019-12-27] MEDS ORDERED: ACETAMINOPHEN 1,000 MG/100 ML RTUPB IV ONE (10:10)
[2019-12-27] MEDS ORDERED: DEXMEDETOMIDINE INJ 80 MCG/20 ML VIAL IV ONE (10:13)
[2019-12-27] MEDS ORDERED: PROMETHAZINE HCL INJ 25 MG/1 ML VIAL IV PRN ×2 (11:16)
[2019-12-27] MEDS ORDERED: MORPHINE SULFATE 10 MG/ML INJ IV PRN (11:16)
[2019-12-27] MEDS ORDERED: DIPHENHYDRAMINE HCL 50 MG/ML VIAL IV PRN (11:16)
[2019-12-27] MEDS ORDERED: MEPERIDINE HCL/PF INJ 25 MG/1 ML DISP.SYRIN IV PRN (11:16)
[2019-12-27] MEDS ORDERED: OXYCODONE-ACETAMINOPHEN 5-325 MG TABLET PO PRN ×2 (11:16)
[2019-12-27] MEDS ORDERED: FENTANYL CITRATE INJ/PF 100 MCG/2 ML AMPUL IV PRN ×3 (11:16)
[2019-12-27] MEDS ORDERED: METHYLENE BLUE 50 MG/10 ML AMPULE ONE (11:39)
--- NOTE | 2019-12-27 13:12 | Operative Report ---
Nonrecallable Operative Report DATE OF SURGERY: 12/27/19 PREOPERATIVE DIAGNOSIS: diverticulitis, colovesical fistula POSTOPERATIVE DIAGNOSIS: diverticulitis, colovesicle fistula OPERATION: Laparoscopic-assisted sigmoid colectomy SURGEON: KEVIN CONDE 1ST NETBACKUP ADMINISTRATOR: MERYL CASTILLO ANESTHESIA: GA TISSUE REMOVED OR ALTERED: Sigmoid colon COMPLICATIONS: None ESTIMATED BLOOD LOSS: 100 cc INTRAOPERATIVE FINDINGS: See note PROCEDURE: Procedure Patient was brought to the operating room awake alert stable condition placed on the operating table supine position induced under general anesthesia intubated. She is then placed up in a low lithotomy position. Mcfadden catheter was placed. The abdomen was then prepped and draped in usual sterile fashion. After appropriate timeout site verification the procedure commenced. A Veress needle was placed in through the umbilicus and the abdomen was insufflated with 6 L of CO2 gas a supraumbilical 10 mm incision was made with a 10 blade and a 10 mm port placed in the abdominal cavity intra-abdominal visualization revealed no evidence of Veress needle or trocar injury. 2 right- sided ports were placed under direct vision a lower 12 mm port and a right midabdominal 5 mm port another 5 mm port was placed on the left side for traction. The sigmoid colon was identified the small bowel was retracted cephalad and patient placed in Trendelenburg position. The sigmoid colon was tightly affixed to the left lateral aspect of the urinary bladder we could see the Mcfadden balloon within the bladder and the and the sigmoid colon was markedly inflamed and adhesed tightly to the and to the dome of the bladder. Using LigaSure device and Metzenbaum scissors were able to dissect the sigmoid colon up off the bladder I did not identify a bladder injury and did not identify a hole within the bladder. Clamp Mcfadden catheter in for and and allow the bladder to fill with urine and again on palpation of the bladder could not identify any leak. We then unclamped the Mcfadden catheter. The descending colon was then mobilized along the white line of [place]t with the LigaSure device all the way to the splenic flexure. We identified the left ureter and preserve that. Once this was done we placed the sigmoid colon on traction identified the rectum incised the peritoneum on the right and left side of the rectum being careful not to injure the right ureter we then came across the proximal rectum with one firing the Endo GINI stapler with a blue load. We divided the mesentery closer to the colon as this was a noncancer case with the LigaSure device all the way to the mid descending colon where I did not identify significant thickening or multiple diverticuli. At this point we are then made a midline incision below the umbilicus to allow for us to bring the specimen out this was a protected with a Alesia wound prote ctor once the incision was made we gain access to the abdominal cavity we placed a wound protector and deliver the specimen. A point was then identified in the mid ascending colon where we that appeared to be soft and we cleared out of fatty tissue we came up across it with the pursestring device. When the pursestring device was fired we divided the colon. We then sized the descending colon with the rectal sizers and easily admitted a 29 mm anvil and that was placed into the pursing suture was tied down. We then placed the EEA stapler through the rectum passed into the end of the staple line in the proximal rectum close connected to the anvil in the descending colon close it fired creating a coloproctostomy. Placed a bowel clamp across the proximal colon and then instilled air under p ressure with the anastomosis under water and there was no evidence of any leak. We then removed the proctoscope and then oversewed the entire staple line circumferentially with interrupted placed 2-0 silk sutures to reinforce it and take the tension off of it. We checked the donuts on the EEA stapler and they were intact. We irrigated the lower abdomen with normal saline suctioned dry placed a Celio-Pope drain in the pelvis and brought out through the 5 mm port site in the right abdominal wall we closed the fascial defect of the 10 mm port site with 0 Vicryl and then we closed the midline fascia with a running double looped 0 PDS suture. [place] were then utilized for the skin. A sterile dressing was applied which completed pleated the procedure. Estimated blood loss was less than 100 cc sponge and needle counts were correct x2 the patient was awakened in the operative extubated transferred recovery in stable condition no complications
[2019-12-27] MEDS: FENTANYL CITRATE INJ/PF 100 MCG/2 ML AMPUL ONE ×2 (13:13→13:20)
[2019-12-27] MEDS ORDERED: ONDANSETRON HCL INJ/PF 4 MG/2 ML SDV IV PRN (13:14)
[2019-12-27] MEDS: MORPHINE SULFATE 10 MG/ML INJ ONE ×2 (13:23→13:30)
[2019-12-27] MEDS: MORPHINE SULFATE 10 MG/ML INJ IV PRN ×2 (15:30→19:56)
[2019-12-27] MEDS ORDERED: MORPHINE SULFATE 10 MG/ML INJ ONE (15:35)
[2019-12-27] MEDS: HEPARIN SOD (PORCINE) 5,000 UNIT/ML 1 ML VIAL SUBCUT SCH ×2 (16:56→21:21)
[2019-12-27] MEDS: POTASSI CL 20 MEQ/D5-1/2NS 1L 1,000 ML IV PRN (17:38)
[2019-12-27] MEDS: FAMOTIDINE INJ/PF 20 MG/2 ML SDV IV SCH (21:18)
[2019-12-28] MEDS: MORPHINE SULFATE 10 MG/ML INJ IV PRN ×6 (00:08→22:16)
[2019-12-28] MEDS: POTASSI CL 20 MEQ/D5-1/2NS 1L 1,000 ML IV PRN ×3 (03:03→22:29)
[2019-12-28] MEDS: HEPARIN SOD (PORCINE) 5,000 UNIT/ML 1 ML VIAL SUBCUT SCH ×3 (05:25→21:38)
[2019-12-28 06:29] LABS: ANION GAP 9 (5-19); BLOOD UREA NITROGEN 15 mg/dL (7-20); CALCIUM 8.5 mg/dL (8.4-10.2); CARBON DIOXIDE 26 mmol/L (22-30); CHLORIDE 98 mmol/L (98-107); GLUCOSE 183 mg/dL (75-110); POTASSIUM 4.7 mmol/L (3.6-5.0)
[2019-12-28 07:00] LABS: ABSOLUTE BASOPHILS # (AUTO) 0.1 10^3/uL (0.0-0.2); ABSOLUTE LYMPHOCYTES (AUTO) 2.4 10^3/uL (0.5-4.7); ABSOLUTE MONOCYTES (AUTO) 1.1 10^3/uL (0.1-1.4); ABSOLUTE NEUT (AUTO) 8.6 10^3/uL (1.7-8.2); BASOPHILS % (AUTO) 0.6 % (0-2); EOSINOPHILS % (AUTO) 0.2 % (0-6); HEMATOCRIT 34.1 % (36.0-47.0); HEMOGLOBIN 11.7 g/dL (12.0-15.5); LYMPHOCYTES % (AUTO) 19.8 % (13-45); MEAN CORPUSCULAR HEMOGLOBIN 30.4 pg (27.0-33.4); MEAN CORPUSCULAR HGB CONC 34.2 g/dL (32.0-36.0); MEAN CORPUSCULAR VOLUME 89 fl (80-97); MONOCYTES % (AUTO) 9.1 % (3-13); RED BLOOD COUNT 3.83 10^6/uL (3.72-5.28); RED CELL DISTRIBUTION WIDTH 14.3 % (11.5-14.0); SEGMENTED NEUTROPHILS % (AUTO) 70.3 % (42-78); TOTAL CELLS COUNTED % (AUTO) 100 %; WHITE BLOOD COUNT 12.2 10^3/uL (4.0-10.5)
[2019-12-28 07:04] LABS: PLATELET COUNT 363 10^3/uL (150-450)
--- NOTE | 2019-12-28 09:20 | PDOC PROGRESS REPORT ---
Subjective Progress Note for:: 12/28/19 Subjective:: feels ok, some incisional pain Reason For Visit: K63.0 ABSCESS OF INTESTINE Physical Exam Vital Signs: Temp Pulse Resp BP Pulse Ox 98.7 F 91 19 131/41 H 92 12/28/19 07:41 12/28/19 07:41 12/28/19 07:41 12/28/19 07:41 12/28/19 07:41 Intake & Output 12/27/19 12/28/19 12/29/19 06:59 06:59 06:59 Intake Total 3652 Output Total 835 Balance 2817 Weight 92.6 kg General appearance: PRESENT: no acute distress Head exam: PRESENT: normocephalic Eye exam: PRESENT: EOMI Mouth exam: PRESENT: moist Neck exam: PRESENT: full ROM Respiratory exam: PRESENT: clear to auscultation ilya Cardiovascular exam: PRESENT: RRR Pulses: PRESENT: normal femoral pulses, normal dorsalis pedis pul Vascular exam: PRESENT: normal capillary refill Breast: PRESENT: Normal GI/Abdominal exam: PRESENT: soft, other - roxann serous wound clean Rectal exam: PRESENT: deferred Extremities exam: PRESENT: full ROM Musculoskeletal exam: PRESENT: full ROM Neurological exam: PRESENT: alert, awake, oriented to person, oriented to place Psychiatric exam: PRESENT: appropriate affect Skin exam: PRESENT: dry Results Laboratory Results: 12/28/19 05:08 12/28/19 05:08 12/28/19 12/28/19 05:08 05:08 WBC 12.2 H RBC 3.83 Hgb 11.7 L Hct 34.1 L MCV 89 MCH 30.4 MCHC 34.2 RDW 14.3 H Plt Count 363 Seg Neutrophils % 70.3 Sodium 132.6 L Potassium 4.7 Chloride 98 Carbon Dioxide 26 Anion Gap 9 BUN 15 Creatinine 0.76 Est GFR ( Amer) > 60 Glucose 183 H Calcium 8.5 Impressions: Chest X-Ray 12/20/19 09:56 IMPRESSION: NO SIGNIFICANT RADIOGRAPHIC FINDING IN THE CHEST. Assessment & Plan - Plan Summary Plan Summary: pod 1 s/p sigmoid colectomy doing ok hct stable drain serous plan- out of bed awaiting return of bowel function
[2019-12-28] MEDS: FAMOTIDINE INJ/PF 20 MG/2 ML SDV IV SCH ×2 (09:38→21:40)
[2019-12-29] MEDS: MORPHINE SULFATE 10 MG/ML INJ IV PRN ×2 (02:39→06:39)
[2019-12-29] MEDS: HEPARIN SOD (PORCINE) 5,000 UNIT/ML 1 ML VIAL SUBCUT SCH ×3 (07:28→21:29)
--- NOTE | 2019-12-29 08:23 | PDOC PROGRESS REPORT ---
Subjective Progress Note for:: 12/29/19 Subjective:: feels ok min activity Reason For Visit: K63.0 ABSCESS OF INTESTINE Physical Exam Vital Signs: Temp Pulse Resp BP Pulse Ox 99.7 F 117 H 16 136/58 H 93 12/28/19 23:17 12/28/19 23:17 12/28/19 23:17 12/28/19 23:17 12/28/19 23:17 Intake & Output 12/28/19 12/29/19 12/30/19 06:59 06:59 06:59 Intake Total 3652 2725 Output Total 833 0220 Balance 2817 -595 Weight 92.6 kg 99.7 kg Head exam: PRESENT: normocephalic Eye exam: PRESENT: EOMI Ear exam: PRESENT: normal external ear exam Neck exam: PRESENT: full ROM Respiratory exam: PRESENT: clear to auscultation ilya Cardiovascular exam: PRESENT: RRR Pulses: PRESENT: normal radial pulses, normal femoral pulses GI/Abdominal exam: PRESENT: soft, other - incision clean dry Rectal exam: PRESENT: deferred Extremities exam: PRESENT: full ROM Musculoskeletal exam: PRESENT: full ROM Neurological exam: PRESENT: alert, awake, oriented to person, oriented to place Psychiatric exam: PRESENT: appropriate affect Skin exam: PRESENT: dry Results Laboratory Results: 12/28/19 05:08 12/28/19 05:08 Impressions: Chest X-Ray 12/20/19 09:56 IMPRESSION: NO SIGNIFICANT RADIOGRAPHIC FINDING IN THE CHEST. Assessment & Plan - Plan Summary Plan Summary: doing ok min activity no flatus or stool yet pain sl improved will add toradol out of bed today.
[2019-12-29] MEDS: FAMOTIDINE INJ/PF 20 MG/2 ML SDV IV SCH ×2 (10:09→21:35)
[2019-12-29] MEDS: POTASSI CL 20 MEQ/D5-1/2NS 1L 1,000 ML IV PRN ×2 (10:11→17:19)
[2019-12-29] MEDS: KETOROLAC TROMETHAMINE INJ/PF 30 MG/1 ML SDV IV SCH ×3 (11:06→23:01)
[2019-12-30] MEDS: HEPARIN SOD (PORCINE) 5,000 UNIT/ML 1 ML VIAL SUBCUT SCH ×3 (05:08→21:34)
[2019-12-30] MEDS: POTASSI CL 20 MEQ/D5-1/2NS 1L 1,000 ML IV PRN ×2 (05:09→16:19)
[2019-12-30] MEDS: KETOROLAC TROMETHAMINE INJ/PF 30 MG/1 ML SDV IV SCH ×4 (05:10→23:23)
--- NOTE | 2019-12-30 08:06 | PDOC PROGRESS REPORT ---
Subjective Progress Note for:: 12/30/19 Subjective:: comfortable, lying in bed was up ambulatimng yesterday no flatus chinedu clears Reason For Visit: K63.0 ABSCESS OF INTESTINE Physical Exam Vital Signs: Temp Pulse Resp BP Pulse Ox 98.9 F 93 16 137/54 H 96 12/30/19 00:00 12/30/19 00:00 12/30/19 00:00 12/30/19 00:00 12/30/19 00:00 Intake & Output 12/29/19 12/30/19 12/31/19 06:59 06:59 06:59 Intake Total 2725 3175 Output Total 3320 1250 Balance -595 1925 Weight 99.7 kg 99.9 kg General appearance: PRESENT: no acute distress Head exam: PRESENT: normocephalic Eye exam: PRESENT: EOMI Ear exam: PRESENT: normal external ear exam Mouth exam: PRESENT: moist Neck exam: PRESENT: full ROM Respiratory exam: PRESENT: clear to auscultation ilya Cardiovascular exam: PRESENT: RRR Pulses: PRESENT: normal radial pulses, normal femoral pulses Breast: PRESENT: Normal GI/Abdominal exam: PRESENT: soft, other - wound clean dry. Rectal exam: PRESENT: deferred Extremities exam: PRESENT: full ROM Musculoskeletal exam: PRESENT: full ROM Neurological exam: PRESENT: alert, awake, oriented to person, oriented to place Psychiatric exam: PRESENT: appropriate affect Skin exam: PRESENT: dry Results Laboratory Results: 12/28/19 05:08 12/28/19 05:08 Impressions: Chest X-Ray 12/20/19 09:56 IMPRESSION: NO SIGNIFICANT RADIOGRAPHIC FINDING IN THE CHEST. Assessment & Plan - Plan Summary Plan Summary: pod 4 s/p sigmoid colectomy doing ok no flatus hogan remains in place (had a colovesicle fistula) roxann with min op plan increase activity awaiting return of bowel function'
[2019-12-30] MEDS: FAMOTIDINE INJ/PF 20 MG/2 ML SDV IV SCH ×2 (09:32→21:50)
[2019-12-30] MEDS ORDERED: PROMETHAZINE HCL INJ 25 MG/1 ML VIAL IV PRN (19:35)
[2019-12-30] MEDS ORDERED: METOCLOPRAMIDE HCL INJ/PF 10 MG/2 ML SDV IV ONE (19:45)
[2019-12-30] MEDS: METOCLOPRAMIDE HCL INJ/PF 10 MG/2 ML SDV IV SCH (23:23)
[2019-12-31] MEDS: KETOROLAC TROMETHAMINE INJ/PF 30 MG/1 ML SDV IV SCH ×3 (06:17→17:43)
[2019-12-31] MEDS: METOCLOPRAMIDE HCL INJ/PF 10 MG/2 ML SDV IV SCH ×3 (06:18→17:42)
[2019-12-31] MEDS: HEPARIN SOD (PORCINE) 5,000 UNIT/ML 1 ML VIAL SUBCUT SCH ×3 (06:18→22:43)
[2019-12-31] MEDS: POTASSI CL 20 MEQ/D5-1/2NS 1L 1,000 ML IV PRN (06:26)
--- NOTE | 2019-12-31 08:02 | PDOC PROGRESS REPORT ---
Subjective Progress Note for:: 12/31/19 Subjective:: feels ok, vomitied last pm Reason For Visit: K63.0 ABSCESS OF INTESTINE Physical Exam Vital Signs: Temp Pulse Resp BP Pulse Ox 98.7 F 99 17 152/55 H 99 12/30/19 23:38 12/30/19 23:38 12/30/19 23:38 12/30/19 23:38 12/30/19 23:38 Intake & Output 12/30/19 12/31/19 01/01/20 06:59 06:59 06:59 Intake Total 3175 3260 Output Total 1250 1865 Balance 1925 1395 Weight 99.9 kg 104.3 kg General appearance: PRESENT: no acute distress Head exam: PRESENT: normocephalic Eye exam: PRESENT: EOMI Mouth exam: PRESENT: moist Neck exam: PRESENT: full ROM Respiratory exam: PRESENT: clear to auscultation ilya Cardiovascular exam: PRESENT: RRR Pulses: PRESENT: normal radial pulses, normal femoral pulses GI/Abdominal exam: PRESENT: soft Rectal exam: PRESENT: deferred Extremities exam: PRESENT: full ROM Musculoskeletal exam: PRESENT: full ROM Neurological exam: PRESENT: alert, awake, oriented to person, oriented to place Psychiatric exam: PRESENT: appropriate affect Skin exam: PRESENT: dry Results Laboratory Results: 12/28/19 05:08 12/28/19 05:08 Impressions: Chest X-Ray 12/20/19 09:56 IMPRESSION: NO SIGNIFICANT RADIOGRAPHIC FINDING IN THE CHEST. Assessment & Plan - Plan Summary Plan Summary: s/p sigmoid colectomy doing ok vomited last pm now npo passing stool roxann serous plan cont npo today await return of bowel function check cbc and lytes.
[2019-12-31] MEDS: FAMOTIDINE INJ/PF 20 MG/2 ML SDV IV SCH ×2 (09:20→22:43)
[2019-12-31] MEDS: MORPHINE SULFATE 10 MG/ML INJ IV PRN (22:43)
[2020-01-01] MEDS: METOCLOPRAMIDE HCL INJ/PF 10 MG/2 ML SDV IV SCH ×2 (01:00→06:43)
[2020-01-01] MEDS: KETOROLAC TROMETHAMINE INJ/PF 30 MG/1 ML SDV IV SCH ×2 (01:00→06:43)
[2020-01-01 06:04] LABS: ABSOLUTE EOSINOPHILS # (AUTO) 0.4 10^3/uL (0.0-0.6); ABSOLUTE LYMPHOCYTES (AUTO) 2.7 10^3/uL (0.5-4.7); ABSOLUTE MONOCYTES (AUTO) 1.1 10^3/uL (0.1-1.4); ABSOLUTE NEUT (AUTO) 5.9 10^3/uL (1.7-8.2); BASOPHILS % (AUTO) 0.5 % (0-2); EOSINOPHILS % (AUTO) 4.2 % (0-6); HEMATOCRIT 33.4 % (36.0-47.0); HEMOGLOBIN 11.5 g/dL (12.0-15.5); LYMPHOCYTES % (AUTO) 26.4 % (13-45); MEAN CORPUSCULAR HEMOGLOBIN 30.6 pg (27.0-33.4); MEAN CORPUSCULAR HGB CONC 34.3 g/dL (32.0-36.0); MEAN CORPUSCULAR VOLUME 89 fl (80-97); MONOCYTES % (AUTO) 10.9 % (3-13); PLATELET COUNT 472 10^3/uL (150-450); RED BLOOD COUNT 3.74 10^6/uL (3.72-5.28); RED CELL DISTRIBUTION WIDTH 14.1 % (11.5-14.0); TOTAL CELLS COUNTED % (AUTO) 100 %; WHITE BLOOD COUNT 10.2 10^3/uL (4.0-10.5)
[2020-01-01 06:30] LABS: ANION GAP 13 (5-19); BLOOD UREA NITROGEN 9 mg/dL (7-20); CALCIUM 9.4 mg/dL (8.4-10.2); CARBON DIOXIDE 21 mmol/L (22-30); CHLORIDE 99 mmol/L (98-107); GLUCOSE 185 mg/dL (75-110); POTASSIUM 5.1 mmol/L (3.6-5.0)
[2020-01-01] MEDS: HEPARIN SOD (PORCINE) 5,000 UNIT/ML 1 ML VIAL SUBCUT SCH (06:43)
[2020-01-01 08:41] VITALS: BP 137/54
--- NOTE | 2020-01-01 08:42 | PDOC DISCHARGE SUMMARY ---
General - Admit/Disc Date/PCP Admission Date/Primary Care Provider: 12/27/19 08:17 ESHA Joshua GRECIA, KEHINDE-Etienne Discharge Date: 01/01/20 - Discharge Diagnosis Final Diagnosis: diverticulitis - Assessment Summary: This is a 64-year-old female who was admitted for elective sigmoid colectomy secondary to chronic diverticulitis with a colovesical fistula. She underwent the procedure on the day of admission and tolerated well. She had a routine benign postoperative course she had resumption of bowel function approximately postop day 2 and she was started on clear liquid diet. This was slowly advanced to regular diet by the time of discharge. Currently she feels well her Celio-Pope drain is been removed a Mcfadden remains in place and she will be discharged home with that and in place with a leg bag. She will be given a prescription for Vicodin for pain and Colace stool softener She will be given a follow-up appointment with me in 7 to 10 days for Mcfadden removal. - Additional Information Resuscitation Status: Full Code Discharge Diet: As Tolerated, Regular Discharge Activity: Activity As Tolerated, No Lifting Over 10 Pounds Referrals: EKVIN CONDE MD [ACTIVE STAFF] - 01/07/20 9:15 am Prescriptions: Docusate Sodium [Colace 100 mg Capsule] 100 mg PO DAILY #30 capsule Hydrocodone/Acetaminophen [[place] 7.5-325 Tablet] 1 each PO Q6HP PRN #20 tablet PRN Reason: Home Medications: Ascorbic Acid/Ascorbate Sodium [Vit C-Lucie Hips 500 mg Chew Tb] 1 tab PO QAM 10/09/19 Bupropion HCl [Bupropion Xl] 150 mg PO DAILY 10/09/19 Clindamycin HCl [Cleocin 300 mg Capsule] 300 mg PO Q6 #60 capsule 10/09/19 Diclofenac Sodium 75 mg PO BIDP PRN 10/09/19 Duloxetine HCl 60 mg PO QHS 10/09/19 Lansoprazole 15 mg PO QAM 10/09/19 Losartan Potassium 50 mg PO DAILY 10/09/19 Lysine [l-Lysine] 500 mg PO QAM 10/09/19 Melatonin 5 mg PO HSP PRN 10/09/19 Multivit-Min/Iron/Folic/Lutein [Multivitamin Women 50 Plus Tab] 1 tab PO QAM 10/09/19 Primidone [Mysoline 50 mg Tablet] 100 mg PO QHS tablet 10/09/19 Propranolol HCl 60 mg PO BID 10/09/19 [place]-3 Fatty Acids/Fish Oil [[place] 3 Fish Oil Softgel] 1 each PO DAILY 12/27/19 Docusate Sodium [Colace 100 mg Capsule] 100 mg PO DAILY #30 capsule 01/01/20 Hydrocodone/Acetaminophen [[place] 7.5-325 Tablet] 1 each PO Q6HP PRN #20 tablet 01/01/20 History of Present Illiness History of Present Illness: MCKINLEY BOND is a 64 year old female Physical Exam Vital Signs: Temp Pulse Resp BP Pulse Ox 98.4 F 91 21 H 131/64 H 95 12/31/19 15:53 12/31/19 15:53 12/31/19 15:53 12/31/19 15:53 12/31/19 15:53 Intake & Output 12/31/19 01/01/20 01/02/20 06:59 06:59 06:59 Intake Total 3260 1360 Output Total 1865 1025 Balance 1395 335 Weight 104.3 kg 102.3 kg Results Laboratory Results: WBC 10.2 10^3/uL (4.0-10.5) 01/01/20 05:46 RBC 3.74 10^6/uL (3.72-5.28) 01/01/20 05:46 Hgb 11.5 g/dL (12.0-15.5) L 01/01/20 05:46 Hct 33.4 % (36.0-47.0) L 01/01/20 05:46 MCV 89 fl (80-97) 01/01/20 05:46 MCH 30.6 pg (27.0-33.4) 01/01/20 05:46 MCHC 34.3 g/dL (32.0-36.0) 01/01/20 05:46 RDW 14.1 % (11.5-14.0) H 01/01/20 05:46 Plt Count 472 10^3/uL (150-450) H 01/01/20 05:46 Lymph % (Auto) 26.4 % (13-45) 01/01/20 05:46 [place] % (Auto) 10.9 % (3-13) 01/01/20 05:46 Eos % (Auto) 4.2 % (0-6) 01/01/20 05:46 Baso % (Auto) 0.5 % (0-2) 01/01/20 05:46 Absolute Neuts (auto) 5.9 10^3/uL (1.7-8.2) 01/01/20 05:46 Absolute Lymphs (auto) 2.7 10^3/uL (0.5-4.7) 01/01/20 05:46 Absolute Monos (auto) 1.1 10^3/uL (0.1-1.4) 01/01/20 05:46 Absolute Eos (auto) 0.4 10^3/uL (0.0-0.6) 01/01/20 05:46 Absolute Basos (auto) 0.0 10^3/uL (0.0-0.2) 01/01/20 05:46 Seg Neutrophils % 58.0 % (42-78) 01/01/20 05:46 Sodium 133.1 mmol/L (137-145) L 01/01/20 05:46 Potassium 5.1 mmol/L (3.6-5.0) H 01/01/20 05:46 Chloride 99 mmol/L (98-107) 01/01/20 05:46 Carbon Dioxide 21 mmol/L (22-30) L 01/01/20 05:46 Anion Gap 13 (5-19) 01/01/20 05:46 BUN 9 mg/dL (7-20) 01/01/20 05:46 Creatinine 0.84 mg/dL (0.52-1.25) 01/01/20 05:46 Est GFR ( Amer) > 60 (>60) 01/01/20 05:46 Est GFR (MDRD) Non-Af > 60 (>60) 01/01/20 05:46 Glucose 185 mg/dL (75-110) H 01/01/20 05:46 POC Glucose 187 mg/dL (70-110) H 12/27/19 09:21 Hemoglobin A1c % 7.5 % (4.7-6.0) H 12/20/19 09:47 Calcium 9.4 mg/dL (8.4-10.2) 01/01/20 05:46 Impressions: Chest X-Ray 12/20/19 09:56 IMPRESSION: NO SIGNIFICANT RADIOGRAPHIC FINDING IN THE CHEST.
[2020-01-01] MEDS: FAMOTIDINE INJ/PF 20 MG/2 ML SDV IV SCH (09:00)
== END 2020-01-01 09:47 | disposition home or self-care (01) | DRG 330 ==
LOC: INOR 08:17 → 5 16:21 → 4W 12-31 04:23 → 3W 12-31 14:01
PROVIDERS: ADMIT Surgery; ATTEND Surgery
PROC: 0DTN4ZZ Resection of Sigmoid Colon, Percutaneous Endoscopic Approach (ICD-10-PCS; principal; 2019-12-27 10:30)
DX: K57.32 Diverticulitis of large intestine without perforation or abscess without bleeding (principal); N32.1 Vesicointestinal fistula; E78.00 Pure hypercholesterolemia, unspecified; I10 Essential (primary) hypertension; G25.0 Essential tremor; R73.03 Prediabetes; M19.90 Unspecified osteoarthritis, unspecified site; F32.9 Major depressive disorder, single episode, unspecified; Z87.891 Personal history of nicotine dependence; Z90.710 Acquired absence of both cervix and uterus
CPT/HCPCS: 36415; 71046; 80048; 82962; 83036; 840; 85025; 88305; 88307; 93005; 93010; 94799; J0131; J0690; J1100; J1170; J1644; J1885; J2250; J2270; J2370; J2405; J2704; J2710; J2765; J3010; J3480; J3490; J7060; Q9968; S0028

== ENCOUNTER 2020-08-11 09:57 | Day surgery (SDC) | payer MEDICARE, OTHER ==
[~2020-08-11 09:57] MED LIST changes: -CEFAZOLIN SODIUM 2 GM in DEXTROSE 5%-WATER 100 ML IV PRN; +CHONDR SU A NA/HYALUR INTRAOC KIT (SURGICARE) ONE; +EPINEPHRINE INJ/PF 1 MG/1 ML AMPULE ONE; -GLYCOPYRROLATE 1 MG/5 ML VIAL ONE; +KETOROLAC TROMETHAMINE 0.45% 4 DROP/0.4 ML DROPERETTE OD PRN; -KETOROLAC TROMETHAMINE 60 MG/2 ML SDV ONE; +LIDOCAINE 1%/PHENYLEPHRINE 1.5% 1 ML VIAL ONE; -LIDOCAINE 2% INJ-PF (20 MG/ML) 2 ML AMPUL ONE; +LIDOCAINE 3.5% OPH GEL/PF 1 ML/TUBE OD PRN; -METRONIDAZOLE 500 MG/NS RTU 500 MG/100 ML RTUPB IV PRN; -NEOSTIGMINE METHYLSULFATE 10 MG/10 ML VIAL ONE; -PHENYLEPHRINE HCL INJ/PF 10 MG/1 ML SDV ONE; +PREDNISOLONE ACETATE 1% OPH SUSP 5 ML OD ONE; +TETRACAINE HCL 0.5% OPH SOLN 4 ML OD PRN
[2020-08-11] MEDS ORDERED: ONDANSETRON HCL INJ/PF 4 MG/2 ML SDV ONE (11:06)
[2020-08-11] MEDS ORDERED: FENTANYL CITRATE INJ/PF 100 MCG/2 ML AMPUL ONE (11:06)
[2020-08-11] MEDS ORDERED: MIDAZOLAM 2 MG/2 ML INJ ONE (11:06)
[2020-08-11] MEDS: TROPICAMIDE 1% OPH SOLN 15 ML OD PRN ×3 (11:33→11:53)
[2020-08-11] MEDS: BESIFLOXACIN HCL 0.6% OPH SUSP 5 ML BOTTLE OD PRN ×4 (11:33→12:44)
[2020-08-11] MEDS: CYCLOPENTOLATE 0.2%/PHENYLEPHRINE 1% OPH SOLN 2 ML OD PRN ×3 (11:33→11:53)
[2020-08-11] MEDS: TETRACAINE HCL 0.5% OPH SOLN 4 ML OD PRN ×3 (11:33→12:20)
[2020-08-11] MEDS ORDERED: PREDNISOLONE ACETATE 1% OPH SUSP 5 ML OD ONE (12:44)
[2020-08-11] MEDS: DORZOLAMIDE HCL 2%/TIMOLOL MALEAT 0.5% OPH SOLN 10 ML OD PRN ×2 (12:44)
--- NOTE | 2020-08-18 19:50 | Operative Report ---
Operative Report-[facility] Operative Report: PREOPERATIVE DIAGNOSIS: Nuclear, cortical and posterior subcapsular cataract, right eye POSTOPERATIVE DIAGNOSIS: Nuclear, cortical and posterior subcapsular cataracts, right eye PROCEDURE: Phacoemulsification and posterior chamber intraocular lens implant, right eye PROCEDURE DATE: [August 11, 2020] SURGEON: Kwan Landers MD Next TECHNICAL CUSTOMER SUPPORT SPECIALIST: [] ANESTHESIA: Topical with IV sedation next COMPLICATIONS: None TISSUE TO PATHOLOGY: None ESTIMATED BLOOD LOSS: None INDICATION FOR SURGERY: [Ms. Coats is a 65 year old female] Who presents to our clinic complaining of difficulty seeing, to read and drive due to blurry vision in both eyes. On examination, she was found to have best corrected visual acuity of [20/60] in the right eye. Ophthalmoscopy revealed a [+3] nuclear, [+2] corneal degeneration, [+3] posterior subcapsular cataract in the right eye with normal appearing cornea, vitreous, retina and optic nerve. I discussed the findings of the exam with the patient. We discussed the risks, benefits and alternatives of cataract extraction and intraocular lens implant in the right eye as a means of improving her vision. Risks that were discussed with the patient include infection, bleeding, retinal detachment and possible need for additional surgery. The patient understands that she may need to wear glasses after surgery. After discussion, the patient indicated her interest in having this procedure performed by signing an informed witness consent form. REPORT OF PROCEDURE: On the day of surgery, the patient was given a topical application to the right eye to consist of drop of Tetracaine 0.5%, tropicamide 1%, Cyclomidril, Besivance 0.6% and Acular 0.45%. The patient was then taken to the operating room in a supine position in a standard eye bed. Intravenous sedation was administered and she was prepped and draped in the standard fashion. A timeout was performed to confirm the surgical site. Attention was directed to the right eye where a paracentesis was created at the 11:30 position at the corneal limbus with a 15 degree blade. The anterior chamber was filled with 0.3 mL of 1% methylparaben free lidocaine and after 30 seconds the anterior chamber was filled with viscoelastic material. A 3 plane corneal incision was then made at the 9 o'clock position at the cornea limbus with a keratome. A continuous curvilinear capsulorrhexis was then made in the anterior capsule of the lens with a cystotome. The lens was hydrodissected using balanced saline solution. The lens nucleus was then removed by phacoemulsification using the stop and chop technique. CDE [13.09 ]. The remaining cortical material was then removed from the posterior capsular bag using irrigation and aspiration. The posterior capsule bag was filled with viscoelastic material and a lens implant was inserted into the posterior capsule bag. I have chosen for this case is a one piece acrylic lens from [employer] model [[id number]], serial number [[id number]], lens power [22.0]. The lens was removed from its package, inspected and found to be free of defects it was loaded into a [employer] D inser ter. The cardiac cath lab radiology technologist was passed through the temporal wound and the lens was advanced into the posterior capsular bag. The lens implant was centered in the posterior capsular bag with the Cesar spatula the viscoelastic material was removed from the eye using irrigation and aspiration. The wounds were closed by stromal hydration and they were tested with the Weck-Anne-Marie sponges and found to have no leaks. Intraocular pressure was assessed by manual palpitation found to be with in the physiologic range. The drape and speculum were removed. Drops of Durezol, Combigan and gatifloxacin were instilled in the right eye. The patient was then taken to the recovery room in good condition. The patient tolerated the procedure very well. The patient was given a prescription for gatifloxacin, Durezol and Ilervo to use every 2 hours while awake today. She will return my clinic tomorrow for follow-up evaluation.
== END 2020-08-11 13:23 | disposition home or self-care (01) ==
LOC: SC 09:57
PROVIDERS: ATTEND Ophthalmology
DX: H25.811 Combined forms of age-related cataract, right eye (principal); E11.36 Type 2 diabetes mellitus with diabetic cataract; M19.90 Unspecified osteoarthritis, unspecified site; I10 Essential (primary) hypertension; E78.00 Pure hypercholesterolemia, unspecified; R25.1 Tremor, unspecified; Z87.891 Personal history of nicotine dependence
CPT/HCPCS: 66984; 82962; 00142; V2632; J2250; J3490 ×2; A9270 ×2; J0171; J3010; J2405; 142